=== PATIENT | male | born 1995 | race Caucasian/White ===

== ENCOUNTER 2016-10-30 07:32 | Emergency (ER) | payer OTHER ==
[2016-10-30] MEDS ORDERED: Ondansetron ODT TAB* 4 MG PO ONE ×2 (07:43→09:22)
[2016-10-30] MEDS ORDERED: Ondansetron INJ* 2 MG/ML VIAL IV ONE (08:23)
--- NOTE | 2016-10-30 08:35 | ED ---
GI/ HPI - HPI Summary HPI Summary: Pt here w/ acute onset nausea/vomiting/diarrhea last night. Some chills since arriving - no fever. Dry mouth. Ab cramping but no focal pain. Denies URI sx, rash, change in urination. Roommate with GI bug last weekend. Denies smoking, drinking ETOH and no use of recreational substances. No new foods, meds, etc. - History of Current Complaint Chief Complaint: EDNauseaVomitDiarrh Time Seen by Provider: 10/30/16 07:42 Stated Complaint: VOMITING,ABD PAIN Hx Obtained From: Patient Pain Intensity: 6 - Allergy/Home Medications Allergies/Adverse Reactions: Allergies Allergy/AdvReac Type Severity Reaction Status Date / Time No Known Allergies Allergy Verified 10/30/16 07:40 PMH/Surg Hx/FS Hx/Imm Hx Previously Healthy: Yes Endocrine/Hematology History: Denies: Hx Thyroid Disease, Autoimmune Disease Respiratory History: Denies: Hx Asthma GI History: Denies: Hx Crohn's Disease, Hx Gall Bladder Disease, Hx Gastroesophageal Reflux Disease, Hx Irritable Bowel - Immunization History Date of Influenza Vaccine: none Infectious Disease History: No Infectious Disease History: Denies: Traveled Outside the [place] in Last 30 Days - Family History Known Family History: Positive: None - Social History Occupation: Student Lives: With Family Alcohol Use: Rare Hx Substance Use: No Substance Use Type: Reports: None Hx Tobacco Use: No Smoking Status (MU): Never Smoked Tobacco Review of Systems Positive: Chills, Fatigue. Negative: Fever Eyes: Negative ENT: Negative Negative: Palpitations, Chest Pain Negative: Shortness Of Breath, Cough Gastrointestinal: Other - see HPI Positive: no symptoms reported Musculoskeletal: Negative Skin: Negative Neurological: Negative Positive: Anxious All Other Systems Reviewed And Are Negative: Yes Physical Exam Triage Information Reviewed: Yes Vital Signs On Initial Exam: Initial Vitals Temp Pulse Resp BP Pulse Ox 99.0 F 86 16 127/72 100 10/30/16 07:37 10/30/16 07:37 10/30/16 07:37 10/30/16 07:37 10/30/16 07:37 Vital Signs Reviewed: Yes Appearance: Positive: No Pain Distress, Well-Nourished, Ill-Appearing Skin: Positive: Warm, Dry Head/Face: Positive: Normal Head/Face Inspection Eyes: Positive: Normal, EOMI, Conjunctiva Clear - anicteric sclera ENT: Positive: Hearing grossly normal, Other - oral mucosa dry Neck: Positive: Supple, Nontender Respiratory/Lung Sounds: Positive: Clear to Auscultation, Breath Sounds Present. Negative: Rales, Rhonchi, Wheezes Cardiovascular: Positive: Normal, RRR Abdomen Description: Positive: Nontender, No Organomegaly, Soft Bowel Sounds: Positive: Present Musculoskeletal: Positive: Normal, Strength/ROM Intact Neurological: Positive: Normal, Sensory/Motor Intact, Alert, Oriented to Person Place, Time, CN Intact II-III Psychiatric: Positive: Anxious - Hunt Coma Scale Coma Scale Total: 15 Diagnostics - Vital Signs Vital Signs Temp Pulse Resp BP Pulse Ox 10/30/16 08:00 72 137/76 98 10/30/16 07:49 66 99 10/30/16 07:47 146/72 10/30/16 07:37 99.0 F 86 16 127/72 100 - Laboratory Result Diagrams: 10/30/16 07:55 10/30/16 07:55 Lab Statement: Any lab studies that have been ordered have been reviewed, and results considered in the medical decision making process. Re-Evaluation - Re-Evaluation First Eval Change: Improved - nausea, vomiting and ab discomfort improved - sipping fluids well GIGU Course/Dx - Diagnoses Provider Diagnoses: Viral gastroenteritis Discharge - Discharge Plan Condition: Stable Disposition: HOME Patient Education Materials: Gastroenteritis (ED) Forms: *School Release Referrals: [facility] @ [facility] [Outside] Additional Instructions: Clear fluids next 48 hours (ie. water, gatorade, applejuice, gingerale, chicken broth, etc). Advance to low residue diet as tolerated (bananas, rice, applesauce , toast, etc). May take zofran if nausea returns Follow-up with [facility] if symtoms lingers - return to ED if worsens.
[2016-10-30 08:52] LABS: Hematocrit 50 % (42-52); Hemoglobin 16.6 g/dl (14.0-18.0); Mean Corpuscular HGB Conc 34 g/dl (31-36); Mean Corpuscular Hemoglobin 28 pg (27-31); Mean Corpuscular Volume 84 fL (80-94); Mean Platelet Volume 9 um3 (7.4-10.4); Red Cell Distribution Width 14 % (10.5-15); White Blood Count 14.4 10^3/ul (3.5-10.8)
[2016-10-30 09:03] LABS: BUN/Creatinine Ratio 31.3 (8-20); Calcium 10.5 mg/dL (8.6-10.3); EGFR African American 156.9 (>60); Globulin 3.3 g/dL (2-4); Potassium 3.8 mmol/L (3.5-5.0); Total Bilirubin 1.5 mg/dL (0.2-1.0); Total Protein 8.3 g/dL (6.4-8.9)
[2016-10-30] MEDS ORDERED: NS 0.9% 1000 ML* 1,000 ML IV ONE (09:14)
[2016-10-30 09:42] VITALS: BP 140/65
== END 2016-10-30 09:44 | disposition home or self-care (01) ==
LOC: ED 07:32
DX: A08.4 Viral intestinal infection, unspecified (principal); R11.2 Nausea with vomiting, unspecified; R19.7 Diarrhea, unspecified; R53.83 Other fatigue
CPT/HCPCS: 36415; 80053; 83735; 85025; 96374; 99283; A9270-GY; J2405